=== PATIENT | male | born 1970 | race Hispanic/Latino ===

== ENCOUNTER 2022-07-01 15:57 | Emergency (ER) | payer OTHER ==
[~2022-07-01] VITALS: Ht 160 cm; Wt 70.3 kg
[2022-07-01] MEDS ORDERED: KETOROLAC TROMETHAMINE 30 MG/ML VIAL IV STA (16:18)
[2022-07-01] MEDS ORDERED: ONDANSETRON HCL INJ 2MG/ML 2ML 2 MG/ML VIAL IV STA (16:18)
[2022-07-01] MEDS ORDERED: KETOROLAC TROMETHAMINE 30 MG/ML VIAL ONE (16:22)
[2022-07-01] MEDS ORDERED: LACTATED RINGER'S 1,000 ML ONE (16:23)
[2022-07-01] MEDS ORDERED: ONDANSETRON HCL INJ 2MG/ML 2ML 2 MG/ML VIAL ONE (16:23)
[2022-07-01] MEDS ORDERED: FAMOTIDINE 20 MG/2 ML VIAL IV STA (16:24)
[2022-07-01] MEDS ORDERED: LACTATED RINGER'S 1,000 ML IV ONE (16:30)
[2022-07-01] MEDS ORDERED: IOPAMIDOL 370 MG/ML 100 ML INFUS..BTL INJ ONE (16:49)
[2022-07-01 20:35] VITALS: BP 139/87
[2022-07-01] MEDS ORDERED: LEVSIN-SL0.125 MG SL (20:40)
[2022-07-01] MEDS ORDERED: OMEPRAZOLE40 MG PO (20:40)
== END 2022-07-01 20:45 | disposition home or self-care (01) ==
LOC: FSED 16:00
DX: R10.13 Epigastric pain (principal); I10 Essential (primary) hypertension; E11.9 Type 2 diabetes mellitus without complications; E78.5 Hyperlipidemia, unspecified
CPT/HCPCS: 74177; 76700; 80048; 81003; 82553; 84484; 85025; 93005; 96374; 96376; 99284; J1885; J2405; J7121; Q9967